=== PATIENT | male | born 1950 | race Caucasian/White ===

== ENCOUNTER 2016-12-04 05:17 | Emergency (ER) | payer OTHER, BC ==
--- NOTE | 2016-12-04 05:42 | PDOC ---
Shoulder Injury/Pain HPI - General Chief Complaint: Upper Extremity Problem/Injury Stated Complaint: FALL WITH LEFT ARM PAIN Date Seen by Provider: 12/04/16 Time Seen by Provider: 05:38 - History of Present Illness Initial Comments: Patient's a 66-year-old gentleman who presents to the emergency department with complaints of left shoulder pain. He says that he has chronic rotator cuff issues and is scheduled for surgery later and this last evening he was trying to ease himself down into some bathwater and he felt like his humerus broke and he fell the 3 or 4 inches down into the bathwater he said some pain in that left humerus/upper arm since that time and is concerned that there might be something going on there such as a fracture. Otherwise he has distal intact sensation and circulation of movement. He is able to move the shoulder joint and his elbow without substantial difficulty or decreased range of motion. Have you received a tetanus shot in the past 10 years?: Unknown - Patient Home Medications Home Medications: Home Medications Allopurinol 1 tab PO DAILY 12/04/16 Aspirin [Aspir 81] 81 tab PO DAILY 12/04/16 Atorvastatin Calcium [Lipitor] 1 tab PO DAILY 12/04/16 Ibuprofen [Advil] 1 cap PO PRN PRN 12/04/16 Metformin HCl 1,000 mg PO BID 12/04/16 Naproxen Sodium [Aleve] 1 tab PO PRN PRN 12/04/16 Spironolactone 1 tab PO DAILY 12/04/16 diphenhydrAMINE HCl [Benadryl] 25 mg PO PRN PRN 12/04/16 - Patient Allergies Allergies/Adverse Reactions: Allergies Allergy/AdvReac Type Severity Reaction Status Date / Time No Known Allergies Allergy Verified 12/04/16 05:29 Past Medical History Past Medical History Reviewed: Reviewed - No Changes ROS - Limitations ROS Limitations: No Limitations Constitution: REPORTS: Denies Symptoms Cardiovascular: REPORTS: Denies Cardiac Symptoms Shoulder Injury/Pain Exam - General Appearance General Appearance: POSITIVE: Alert, Cooperative, No Acute Distress - Upper Extremity Shoulder: POSITIVE: Other (He has some tenderness about the distal deltoid up into the anterior humerus no evidence of shoulder dislocation he has some chronic difficulty with raising his left shoulder and otherwise no new issues.) Upper Extremity: POSITIVE: Uninjured Below Shoulder Neuro/Vascular: POSITIVE: Sensation Normal, Motor Normal - HEENT HEENT: POSITIVE: Head Inspection Nml Shoulder Pain/Injury Progress - Results Reviewed by me Xrays/CTs/US Reviewed by me: Yes Radiology Findings: benign shoulder and humerus - Patient's Progress MDM / ED Course: Patient's bony elements of his arm and shoulder appear normal to me. We will have him over read by radiologist and I have encouraged him to follow-up with his primary care doctor in the near future to discuss his shoulder pain arm pain and also to see his orthopedist near future as well. Any new issues or complaints he can return here for reevaluation. Patient Care Time - Estimated PCT Patient Care Time (In Minutes): 30 Vital Signs - Recent Vital Signs Vital Signs: Vital Signs (Last 8 hours) Temp Pulse Resp BP Pulse Ox 12/04/16 05:17 96.9 F 77 18 143/111 95 - VS Reviewed Vital Signs Reviewed: Yes Discharge Clinical Impression: Sprain of shoulder and upper arm Discharge Disposition: Discharged to Home Condition: Stable Patient Instructions Given at Discharge: Shoulder Sprain (ED) Additional Instructions: Wear a sling and rest your arm Follow-up with her primary care provider soon as possible Follow-up with your orthopedist who is planning on operating on your shoulder as soon as possible Use [id number] ibuprofen and Tylenol for discomfort Follow Up With: NONE,NONE [Primary Care Provider] -
[2016-12-04 05:53] VITALS: TEMP 96.9
[2016-12-04 06:34] VITALS: RESP 14
--- NOTE | 2016-12-04 09:00 | DI ---
XR SHOULDER MIN 2VW,12/04/2016 5:35 AM: Clinical History: Fall with left shoulder pain. Previous Exam: None at this facility. Findings: AP and transscapular Y. views of the left shoulder are obtained, and demonstrate a calcified density involving the superior margin of the glenoid which appears to represent a fracture. There is some irregularity of the distal clavicle as well without a definite fracture identified. The adjacent left lung and chest wall is unremarkable. There is some enthesophyte formation involving th e articular surface of the proximal humerus. Impression: 1. Mild fragmentation of the superior glenoid at the glenoid tubercle of the left shoulder may repres ent a fracture. Correlate clinically. 2. Irregularity of the distal clavicle likely representing an old injury. Cannot completely rule out a nondisplaced fracture. If further information is needed consider CT or MRI.
--- NOTE | 2016-12-04 10:02 | DI ---
XR HUMERUS MIN 2VW,12/04/2016 5:35 AM: Clinical History: Followup of the hub with arm pain. Previous Exam: None at this facility. Findings: 2 views of the left humerus are obtained, and demonstrate anatomic alignment without fractures. There are some degenerative changes of the proximal humerus. The superior margin of the glenoid demonstrates mild fragmentation of unknown chronicity. Impression: 1. Possible fracture of the superior margin of the glenoid of unknown chronicity.
== END 2016-12-04 06:20 | disposition home or self-care (01) ==
LOC: ER 05:17
DX: S43.402A Unspecified sprain of left shoulder joint, initial encounter (principal); M25.512 Pain in left shoulder; W16.212A Fall in (into) filled bathtub causing other injury, initial encounter
CPT/HCPCS: 73030; 73060; 99283